=== PATIENT | male | born 1985 | race Caucasian/White ===

== ENCOUNTER 2019-01-22 20:13 | Emergency (ER) | payer OTHER ==
[~2019-01-22] VITALS: Ht 188 cm; Wt 104.3 kg
[2019-01-22 21:45] VITALS: BP 108/87
[2019-01-22] MEDS ORDERED: HYDROcodone-ACET 5/325MG TAB PO ONE (21:45)
[2019-01-22] MEDS ORDERED: BACLOFEN 10 MG TAB PO ONE (21:45)
[2019-01-22] MEDS ORDERED: DexAMETHasone SOD PHOS 10MG/1ML VIAL INJ IM ONE (21:45)
== END 2019-01-22 23:05 | disposition home or self-care (01) ==
LOC: ER 20:26
DX: M62.838 Other muscle spasm (principal); M54.2 Cervicalgia; M54.9 Dorsalgia, unspecified; V49.49XA Driver injured in collision with other motor vehicles in traffic accident, initial encounter; Y93.89 Activity, other specified; Y99.0 Civilian activity done for income or pay; Y92.89 Other specified places as the place of occurrence of the external cause
CPT/HCPCS: 70450; 72100; 72125; 96372; 99284; J1100

== ENCOUNTER 2019-01-25 20:19 | Emergency (ER) | payer OTHER ==
[~2019-01-25] VITALS: Ht 188 cm; Wt 104.3 kg
[2019-01-26 01:16] VITALS: BP 138/88
[2019-01-26] MEDS ORDERED: IBUPROFEN 800 MG TAB PO ONE (03:00)
== END 2019-01-26 03:27 | disposition home or self-care (01) ==
LOC: ER 20:22
DX: M62.838 Other muscle spasm (principal); M54.2 Cervicalgia; R51 Headache; V89.0XXD Person injured in unspecified motor-vehicle accident, nontraffic, subsequent encounter